=== PATIENT | female | born 1995 | race Caucasian/White ===

== ENCOUNTER 2021-01-10 17:50 | Emergency (ER) | payer BC | END 2021-01-10 19:33 | disposition home or self-care (01) | LOC: CSHERS 17:50 | DX: F41.0 Panic disorder [episodic paroxysmal anxiety] (principal); J45.909 Unspecified asthma, uncomplicated; E03.9 Hypothyroidism, unspecified; F17.210 Nicotine dependence, cigarettes, uncomplicated | CPT/HCPCS: 99283 ==

== ENCOUNTER 2021-08-23 14:16 | Emergency (ER) | payer SELFPAY ==
[2021-08-23 15:32] LABS: #Eosinphils 0.1 10x3/uL (0.0-0.5); #Monocytes 0.6 10x3/uL (0.0-1.1); #Neutrophils 5.3 10x3/uL (1.5-8.4); %Basophils 0.2 % (0.0-2.0); %Eosinophils 1.2 % (0.0-6.0); %Monocytes 6.9 % (0.0-10.0); %Neutrophils 65.3 % (40.0-75.0); Hemoglobin 14.2 g/dL (12.0-15.5); Mean Corpuscular HGB CONC 33.3 g/dL (32.0-36.0); Mean Corpuscular Hemoglobin 29.2 pg (27.0-33.0); Mean Corpuscular Volume 87.9 fl (81.6-98.3); Platelet Count 209 10x3/uL (150-450); RBC Distribution Width 12.9 % (11.5-14.5); Red Blood Cell (RBC) Count 4.86 10x6/uL (3.90-5.03); White Blood Cell (WBC) Count 8.1 10x3/uL (3.5-10.5)
[2021-08-23 15:41] LABS: SARS-CoV-2 NAA Rapid Test DETECTED (NotDetected)
[2021-08-23 15:43] LABS: ALT (SGPT) 72 U/L (8-55); AST (SGOT) 39 U/L (5-34); Albumin 3.9 g/dL (3.5-5.0); Alkaline Phosphatase 91 U/L (40-110); Anion Gap 12 mmol/L (10-20); BUN (Urea Nitrogen) 14 mg/dL (7.0-18.7); Bilirubin, Total 0.9 mg/dL (0.2-1.2); Calc. Creatinine Clearance 0 mL/min (70-130); Calcium 8.3 mg/dL (7.8-10.44); Carbon Dioxide 25 mmol/L (22-29); Chloride 104 mmol/L (98-107); Estimated GFR 101; Globulin 2.4 g/dL (2.4-3.5); Glucose 84 mg/dL (70-105); Potassium 4.1 mmol/L (3.5-5.1); Protein, Total 6.3 g/dL (6.0-8.3); Sodium 137 mmol/L (136-145)
== END 2021-08-23 16:57 | disposition home or self-care (01) ==
LOC: CSHERS 14:16
DX: U07.1 COVID-19 (principal); F17.210 Nicotine dependence, cigarettes, uncomplicated
CPT/HCPCS: 71045; 80053; 84484; 85025; 93005

== ENCOUNTER 2022-07-10 12:25 | Emergency (ER) | payer MEDICAID, SELFPAY ==
[2022-07-10] MEDS ORDERED: Dexamethasone 4 MG TAB ONE (13:06)
== END 2022-07-10 13:48 | disposition home or self-care (01) ==
LOC: CSHERS 12:25
DX: J03.90 Acute tonsillitis, unspecified (principal); F17.210 Nicotine dependence, cigarettes, uncomplicated
CPT/HCPCS: 87081; 87430; 99283; J8540

== ENCOUNTER 2022-10-20 14:26 | Emergency (ER) | payer OTHER, SELFPAY ==
[2022-10-20 15:30] LABS: SARS-CoV-2 NAA Rapid Test DETECTED (NotDetected)
== END 2022-10-20 15:30 | disposition home or self-care (01) ==
LOC: CSHERS 14:26
DX: U07.1 COVID-19 (principal); F17.210 Nicotine dependence, cigarettes, uncomplicated
CPT/HCPCS: 99283

== ENCOUNTER 2023-01-18 21:48 | Emergency (ER) | payer OTHER ==
[2023-01-18] MEDS ORDERED: Dexamethasone 10 MG/ML VIAL ONE (22:49)
[2023-01-18] MEDS ORDERED: Ketorolac Tromethamine 30 MG/ML VIAL ONE (22:49)
[2023-01-18] MEDS ORDERED: Bicillin LA 1.2 MILLION UNITS/2 ML SYRINGE IM SCH (23:00)
[2023-01-18 23:25] LABS: SARS-CoV-2 NAA Rapid Test Not Detected (NotDetected)
== END 2023-01-18 23:22 | disposition home or self-care (01) ==
LOC: CSHERS 21:48
DX: J02.0 Streptococcal pharyngitis (principal); F17.290 Nicotine dependence, other tobacco product, uncomplicated; F17.210 Nicotine dependence, cigarettes, uncomplicated; Z20.822 Contact with and (suspected) exposure to COVID-19
CPT/HCPCS: 87430; 96372; 99283; J0561; J1100; J1885

== ENCOUNTER 2023-02-22 21:48 | Emergency (ER) | payer OTHER ==
[2023-02-22] MEDS ORDERED: Dexamethasone 10 MG/ML VIAL ONE (22:39)
[2023-02-22] MEDS ORDERED: Acetaminophen 500 MG TAB ONE (22:39)
[2023-02-22] MEDS ORDERED: Albuterol 2.5 MG (3 mL) NEB ONE (22:49)
[2023-02-22] MEDS ORDERED: Albuterol 2.5 MG (0.5 mL) NEB ONE (22:50)
[2023-02-22 23:18] LABS: SARS-CoV-2 NAA Rapid Test Not Detected (NotDetected)
== END 2023-02-23 00:21 | disposition home or self-care (01) ==
LOC: CSHERS 21:48
DX: J06.9 Acute upper respiratory infection, unspecified (principal); F17.210 Nicotine dependence, cigarettes, uncomplicated; F17.290 Nicotine dependence, other tobacco product, uncomplicated
CPT/HCPCS: 87804; 94640; J1100; J7611; U0002

== ENCOUNTER 2023-08-10 01:07 | Emergency (ER) | payer OTHER ==
[2023-08-10 01:54] LABS: Clarity Cloudy (Clear)
[2023-08-10 02:01] LABS: Pregnancy Test - Urine (BHCG) Negative (Negative); Pregu Control Background? CLEAR/WHITE (CLR/WHITE); Pregu Control Bar Appear? YES (CONTROL BAR)
[2023-08-10 02:17] LABS: Bacteria/HPF 2+ HPF (None Seen); CAUTI Indications for Culture Dysuria,urgency,freq; Squamous Epithelial 0-3 HPF (0-3); WBC/HPF 21-50 HPF (0-3)
[2023-08-10 02:18] LABS: Oval Fat Bodies/HPF Rare HPF (None Seen); Urine Culture Reflex Yes Yes
[2023-08-10 15:35] LABS: Chlam.trachomatis by PCR,Urine Not Detected (NotDetected); GC N.gonorrhoeae PCR,UrineVOID Not Detected (NotDetected)
== END 2023-08-10 02:12 | disposition home or self-care (01) ==
LOC: CSHERS 01:07
DX: R30.0 Dysuria (principal); F17.210 Nicotine dependence, cigarettes, uncomplicated; F17.290 Nicotine dependence, other tobacco product, uncomplicated
CPT/HCPCS: 81001; 81025; 87077; 87086; 87491; 87591; 99283